=== PATIENT | female | born 1960 ===

== ENCOUNTER 2018-11-04 09:27 | Outpatient (CLI) | payer OTHER | END 2018-11-04 09:28 | disposition home or self-care (01) | LOC: C.USIC 09:28 ==

== ENCOUNTER 2018-11-23 16:28 | Emergency (ER) | payer OTHER ==
[2018-11-23 16:47] VITALS: BP 159/80; PULSE 86; RESP 16; TEMP 98.7; O2SAT 99; BMI 33.3
[2018-11-23] MEDS ORDERED: Bacitracin 500 Units/gm Oint Foilpak UD TOP STA (17:24)
--- NOTE | 2018-11-23 18:22 | RAD ---
PROCEDURE: Left Knee Radiographs. HISTORY: FALL COMPARISON: None available. FINDINGS: BONES: No acute displaced fracture. Patellar enthesophyte. JOINTS: No dislocation. Joint space narrowing. JOINT EFFUSION: No significant joint effusion. OTHER FINDINGS: None. IMPRESSION: No acute displaced fracture, dislocation, or significant joint effusion identified.If symptoms persist, or if there is continued clinical concern, x-ray follow-up in 7-10 days should be considered. Degenerative changes.
--- NOTE | 2018-11-23 18:33 | CT ---
Date of service: 11/23/2018 PROCEDURE: CT HEAD WITHOUT CONTRAST. HISTORY: FALL COMPARISON: None available. TECHNIQUE: Axial computed tomography images were obtained through the head/brain without intravenous contrast. Radiation dose: Total exam DLP = 1034.65 mGy-cm. This CT exam was performed using one or more of the following dose reduction techniques: Automated exposure control, adjustment of the mA and/or kV according to patient size, and/or use of iterative reconstruction technique. FINDINGS: HEMORRHAGE: No intracranial hemorrhage. BRAIN: No mass effect or edema. No atrophy or chronic microvascular ischemic changes.Please note that MRI with diffusion imaging is more sensitive in the detection of acute ischemic event. VENTRICLES: No hydrocephalus. CALVARIUM: Unremarkable. PARANASAL SINUSES: Unremarkable as visualized. No significant inflammatory changes. MASTOID AIR CELLS: Unremarkable as visualized. No inflammatory changes. OTHER FINDINGS: None. IMPRESSION: No acute intracranial pathology identified.
--- NOTE | 2018-11-23 19:25 | C.PDOC ---
History Of Present Illness 58 year old female presents to the ED s/p fall. Patient states that she was walking and fell. Patient complains of swelling to the right side of the forehead, pain to the right wrist, and pain in the left knee. She denies nausea, vomiting, dizziness, numbness, and weakness. - HPI Time Seen by Provider: 11/23/18 17:09 Chief Complaint (Nursing): Trauma History Per: Patient History/Exam Limitations: no limitations Onset/Duration Of Symptoms: Hrs Location Of Injury: Right: Face (forehead), Hand (wrist), Left: Leg (knee) Past Medical History Reviewed: Historical Data, Nursing Documentation, Vital Signs Vital Signs: Last Vital Signs Temp 98.7 F 11/23/18 16:46 Pulse 86 11/23/18 16:46 Resp 16 11/23/18 16:46 BP 159/80 H 11/23/18 16:46 Pulse Ox 99 11/23/18 16:46 - Medical History PMH: Arthritis, Asthma, Diabetes, Gastrointestinal Ulcer, HTN, Hypercholesterolemia Denies: Chronic Kidney Disease Surgical History: Endoscopy (X3) - [facility] Procedures ESOPHAGOGASTRODUODENOSCOPY [EGD] W/CLOSED BIOPSY (05/19/14) Family History: States: Unknown Family Hx - Social History Hx Tobacco Use: No Hx Alcohol Use: No Hx Substance Use: No - Immunization History Hx Tetanus Toxoid Vaccination: No Hx Influenza Vaccination: No Hx Pneumococcal Vaccination: No Review Of Systems Constitutional: Negative for: Fever, Chills, Weakness Musculoskeletal: Positive for: Hand Pain (right wrist), Leg Pain (left knee) Neurological: Positive for: Headache (pain to the right side of the forehead). Negative for: Weakness, Numbness, Dizziness Physical Exam - Physical Exam Appears: Non-toxic, No Acute Distress Skin: Normal Color, Warm, Dry Head: Swelling (forehead on the right side), Laceration (linear abrasion on the right cheek) Neck: Normal ROM, Supple Chest: Symmetrical, No Deformity Cardiovascular: Rhythm Regular, No Murmur Respiratory: No Accessory Muscle Use Gastrointestinal/Abdominal: Soft, No Tenderness Extremity: Tenderness (right wrist), Swelling (right wrist ), Other (left knee abrasion, tenderness, and decreased ROM; bilateral leg abrasions) Pulses: Left Dorsalis Pedis: Normal, Right Dorsalis Pedis: Normal Neurological/Psych: Oriented x3, Normal Speech, Normal Cognition ED Course And Treatment O2 Sat by Pulse Oximetry: 99 (in RA) - Other Rad Left knee X-ray X-Ray: Interpreted by Me, Viewed By Me Interpretation: Accession No. : [id number]. Patient Name / ID : BRIGHT ARIZMENDI / [id number]. Exam Date : 11/23/2018 17:44:58 ( Approved ). Study Comment : Sex / Age : F / 58Y. Creator : Ruth Carr MD. Dictator : Ruth Carr MD. Internet Site Designer : Facility Technician : Ruth Carr MD. Approver2 : Report Date : 11/23/2018 18:19:00. My Comment : . PROCEDURE: Left Knee Radiographs. HISTORY: FALL. COMPARISON: None available. FINDINGS: BONES: No acute displaced fracture. Patellar enthesophyte. JOINTS: No dislocation. Joint space narrowing. JOINT EFFUSION: No significant joint effusion. OTHER FINDINGS: None. IMPRESSION: No acute displaced fracture, dislocation, or significant joint effusion identified.If symptoms persist, or if there is continued clinical concern, x-ray follow-up in 7-10 days should be considered. Degenerative changes. - CT Scan/US Head CT Other Rad Studies (CT/US): Interpreted By Me, Read By Radiologist CT/US Interpretation: Accession No. : [id number]. Patient Name / ID : BRIGHT ARIZMENDI / [id number]. Exam Date : 11/23/2018 18:11:08 ( Approved ). Study Comment : Sex / Age : F / 58Y. Creator : Ruth Carr MD. Dictator : Ruth Carr MD. Internet Site Designer : Facility Technician : Ruth Carr MD. Approver2 : Report Date : 11/23/2018 18:29:37. My Comment : . Date of service: 11/23/2018. PROCEDURE: CT HEAD WITHOUT CONTRAST. HISTORY: FALL. COMPARISON: None available. TECHNIQUE: Axial computed tomography images were obtained through the head/brain without intravenous contrast. Radiation dose: Total exam DLP = 1034.65 mGy-cm. This CT exam was performed using one or more of the following dose reduction techniques: Automated exposure control, adjustment of the mA and/or kV according to patient size, and/or use of iterative reconstruction technique. FINDINGS: HEMORRHAGE: No intracranial hemorrhage. BRAIN: No mass effect or edema. No atrophy or chronic microvascular ischemic changes.Please note that MRI with diffusion imaging is more sensitive in the detection of acute ischemic event. VENTRICLES: No hydrocephalus. CALVARIUM: Unremarkable. PARANASAL SINUSES: Unremarkable as visualized. No significant inflammatory changes. MASTOID AIR CELLS: Unremarkable as visualized. No inflammatory changes. OTHER FINDINGS: None. IMPRESSION: No acute intracranial pathology identified. Progress Note: Head CT, Left knee X-ray, Right wrist x-ray ordered for patient. Patient given Bacitracin TOP and Tylenol PO. Re-evaluation. Patient feels better. Discussed results and plan with patient who expresses understanding. All questions answered and there is agreement with the plan to discharge home with instructions. Patient stable for discharge. Return if symptoms persist or worsen. Disposition - Disposition Disposition: HOME/ ROUTINE Disposition Time: 19:21 Condition: STABLE Additional Instructions: Follow up with PMD within 1-2 days. Return to ED if feel worse. Prescriptions: Bacitracin OINT 1 applic TP TID #45 g Instructions: Knee Immobilizer (DC), Contusion (DC), Minor Head Injury (DC), Skin Abrasions (DC) Forms: [employer] ([place]ine) Print Language: MEXICAN - Clinical Impression Clinical Impression: Multiple contusions, Abrasions of multiple sites, Minor head injury - PA / INVENTORY COORDINATOR / Resident Statement MD/ has reviewed & agrees with the documentation as recorded. (Sonal Potts) - Scribe Statement The provider has reviewed the documentation as recorded by the Scribe (Sonal Potts) All medical record entries made by the Scribe were at my direction and personally dictated by me. I have reviewed the chart and agree that the record accurately reflects my personal performance of the history, physical exam, medical decision making, and the department course for this patient. I have also personally directed, reviewed, and agree with the discharge instructions and disposition.
--- NOTE | 2018-11-24 15:37 | RAD ---
Date of service: 11/23/2018 PROCEDURE: Right Wrist Radiographs. HISTORY: FALL COMPARISON: None. FINDINGS: BONES: Tiny subcortical cystic changes and sclerosis of the trapezium noted. Along the radial side of the 1st carpal metacarpal joint there is a 1 mm ossification which could represent ossific debris or soft tissue ossification or even a tiny osseous avulsion-chronicity is favored given the unremarkable soft tissues in the immediate vicinity. JOINTS: No dislocation. SOFT TISSUES: Normal. OTHER FINDINGS: None. IMPRESSION: An acute fracture is doubted. Chronic changes are favored at the 1st carpal metacarpal joint where concomitant mild arthrosis is noted.
== END 2018-11-23 19:49 | disposition home or self-care (01) ==
LOC: C.ER 16:28
DX: S00.83XA Contusion of other part of head, initial encounter (principal); S00.81XA Abrasion of other part of head, initial encounter; S80.212A Abrasion, left knee, initial encounter; W18.30XA Fall on same level, unspecified, initial encounter; Y93.01 Activity, walking, marching and hiking

== ENCOUNTER 2018-12-29 16:32 | Outpatient (CLI) | payer OTHER | END 2018-12-29 16:33 | disposition home or self-care (01) | LOC: C.MAMMO 16:32 | DX: Z12.31 Encounter for screening mammogram for malignant neoplasm of breast (principal) ==